=== PATIENT | male | born 1950 | race Two or more races ===

== ENCOUNTER 2023-01-06 15:30 | Emergency (ER) | payer MEDICARE, OTHER ==
[~2023-01-06] VITALS: Ht 172.7 cm; Wt 90.0 kg
[2023-01-06 15:36] VITALS: BP 107/63
== END 2023-01-06 23:06 | disposition left against medical advice (07) ==
LOC: ER 15:30
DX: Z53.21 Procedure and treatment not carried out due to patient leaving prior to being seen by health care provider (principal)
CPT/HCPCS: 99281